=== PATIENT | female | born 1955 | race Two or more races ===

== ENCOUNTER 2024-08-01 08:43 | Inpatient (IN) | payer OTHER ==
[~2024-08-01] VITALS: Ht 160 cm; Wt 80.3 kg
--- NOTE | 2024-08-01 09:05 | ED.PDOC ---
History of Present Illness HPI Comments 69-year-old female presents with a chief complaint of flu-likes symptoms with N/V/D. Patient states that she is experiencing cough, headache, body aches, along with N/V/D. Patient is tachycardic upon arrival. Patient was sating at 93% on room air during triage. Chief Complaint: Nausea/Vomiting Time Seen by MD: 08:53 Reviewed Notes: Medications, Allergies Allergies: Coded Allergies: NO KNOWN ALLERGIES (Unverified , 08/01/24) Information Source: Patient Mode of Arrival: Ambulatory Severity: Moderate Timing: Days Duration: Since onset Prehospital treatment: None Past Medical History PAST MEDICAL HISTORY: Denies Surgical History: DEBONE SUPERVISOR History: Denies all DEBONE SUPERVISOR Hx Family History Family History: Reviewed,noncontributory to illness Social History Smoker: Non-Smoker Alcohol: Denies ETOH Use Drugs: Denies Drug Use Lives In: Home Constitutional: denies: chills, diaphoresis, fatigue, fever, malaise, sweats, weakness, others EENTM: denies: blurred vision, double vision, ear bleeding, ear discharge, ear drainage, ear pain, ear ringing, eye pain, eye redness, hearing loss, mouth pain, mouth swelling, nasal discharge, nose bleeding, nose congestion, nose pain, photophobia, tearing, throat pain, throat swelling, voice changes, others Respiratory: reports: cough Cardiovascular: denies: chest pain, dizzy spells, diaphoresis, Dyspnea on exertion, edema, irregular heart beat, left arm pain, lightheadedness, palpitations, PND, syncope, others Gastrointestinal: reports: diarrhea, nausea, vomiting; denies: abdomen distended, abdominal pain, blood streaked bowels, constipated, dysphagia, difficulty swallowing, hematemesis, melena, poor appetite, poor fluid intake, rectal bleeding, rectal pain, others Genitourinary: denies: abnormal vagina bleeding, burning, dyspareunia, dysuria, flank pain, frequency, hematuria, incontinence, pain, , vagina discharge, urgency, others Neurological: reports: headache; denies: dizziness, fainting, left sided numbness, left sided weakness, numbness, paresthesia, pre-existing deficit, right sided numbness, right sided weakness, seizure, speech problems, tingling, tremors, weakness, others Musculoskeletal: reports: muscle pain; denies: back pain, gout, joint pain, joint swelling, muscle stiffness, neck pain, others Integumetry: denies: bruises, change in color, change in hair/nails, dryness, laceration, lesions, lumps, rash, wounds, others Allergic/Immunocompromised: denies: Difficulty Healing, Frequent Infections, Hives, Itching, others Hematologic/Lymphatic: denies: anemia, blood clots, easy bleeding, easy bruising, swollen glands, others Endocrine: denies: excessive hunger, excessive sweating, excessive thirst, excessive urination, flushing, intolerance to cold, intolerance to heat, unexplained weight gain, unexplained weight loss, others Psychiatric: denies: anxiety, bipolar disorder, depression, hopeless, panic disorder, schizophrenia, sleepless, suicidal, others All Other Systems: Reviewed and Negative Physical Exam General Appearance: No Apparent Distress, Normal HEENT: Normal ENT Inspection, Pharynx Normal, TMs Normal Neck: Full Range of Motion, Non-Tender, Normal, Normal Inspection Respiratory: Chest Non-Tender, Lungs Clear, No Accessory Muscle Use, No Respiratory Distress, Normal Breath Sounds Cardiovascular: No Edema, No JVD, No Murmur, No Gallop, Normal Peripheral Pulses, Regular Rate/Rhythm Breast Exam: Deferred Gastrointestinal: No Organomegaly, Non Tender, No Pulsatile Mass, Normal Bowel Sounds, Soft Genitalia: Deferred Pelvic: Deferred Rectal: Deferred Extremities: No calf tenderness, Normal capillary refill, Normal inspection, Normal range of motion, Non-tender, No pedal edema Musculoskeletal : Apperance: Normal Neurologic: Alert, couture dressmaker II-XII nml as Tested, No Motor Deficits, Normal Affect, Normal Mood, No Sensory Deficits Cerebellar Function: Normal Reflexes: Normal Skin: Dry, Normal Color, Warm Lymphatic: No Adenopathy Was a procedure done? Was a procedure done?: No Differential Dx Considerations may include: sepsis due to influenza, uti, pneumonia, intraabdominal infection, skin infection, viral syndrome X-Ray, Labs, Meds, VS Vital Signs Date Time Temp Pulse Resp B/P (MAP) Pulse Ox O2 Delivery O2 Flow Rate FiO2 08/01/24 14:25 97.9 08/01/24 11:22 101.2 08/01/24 09:20 99.8 109 22 113/84 (94) 91 99.8 08/01/24 08:47 99.7 117 22 100/67 (78) 94 99.7 Lab Test 08/01/24 13:20 08/01/24 09:40 Range/Units Influenza Type A Antigen Negative Negative Influenza Type B Antigen Negative Negative White Blood Count 8.4 4.4-10.8 10^3/uL Red Blood Count 4.60 4.0-5.20 10^6/uL Hemoglobin 14.2 12.2-16.2 g/dL Hematocrit 40.4 36.0-46.0 % Mean Corpuscular Volume 87.8 80.0-100.0 fL Mean Corpuscular Hemoglobin 30.9 28.0-32.0 pg Mean Corpuscular Hemoglobin Concent 35.2 32.0-36.0 g/dL Red Cell Distribution Width 13.3 11.8-14.3 % Platelet Count 140 140-450 10^3/uL Mean Platelet Volume 9.3 6.9-10.8 fL Neutrophils (%) (Auto) 87.0 H 37.0-80.0 % Lymphocytes (%) (Auto) 5.3 L 10.0-50.0 % Monocytes (%) (Auto) 7.4 0.0-12.0 % Eosinophils (%) (Auto) 0.0 0.0-7.0 % Basophils (%) (Auto) 0.3 0.0-2.0 % Neutrophils # (Auto) 7.3 1.6-8.6 10 ^3/uL Lymphocytes # (Auto) 0.4 0.4-5.4 10 ^3/uL Monocytes # (Auto) 0.6 0-1.3 10 ^3/uL Eosinophils # (Auto) 0 0-0.8 10 ^3/uL Basophils # (Auto) 0 0-0.2 10 ^3/uL Nucleated Red Blood Cells 0.1 % Sodium Level 124 L 136-145 mmol/L Potassium Level 3.6 3.5-5.1 mmol/L Chloride Level 95 L 98-107 mmol/L Carbon Dioxide Level 19 L 20-31 mmol/L Anion Gap 10 5-15 Blood Urea Nitrogen 18 9-23 mg/dL Creatinine 1.22 H 0.550-1.02 mg/dL Glomerular Filtration Rate Calc 48 >90 mL/min BUN/Creatinine Ratio 14.8 10.0-20.0 Serum Glucose 111 H 74-106 mg/dL Lactic Acid Level 1.0 0.4-2.0 mmol/L Calcium Level 9.1 8.7-10.4 mg/dL Current Medications Medications (Trade) Dose Ordered Sig/Quintin Route Start Time Stop Time Status Last Admin Sodium Chloride 1,500 ml @ 1,500 mls/hr ONCE ONCE IV 08/01/24 09:15 08/01/24 10:14 DC 08/01/24 09:29 Cefepime HCl 50 ml @ 12.5 mls/hr Q12H IV 08/01/24 11:00 08/01/24 11:22 Acetaminophen (Tylenol Tablet) 650 mg ONCE ONCE PO 08/01/24 11:00 08/01/24 11:02 DC 08/01/24 11:22 Time of 1ST Reevaluation: 09:23 Reevaluation 1ST: Unchanged Patient Education/Counseling: Diagnosis, Treatment Family Education/Counseling: No Family Present Additional Information Previous visits: The following tests were ordered, and results were reviewed by me: Additional Information was gathered from interviewing the following independent historians: I reviewed and agreed with the following test results read by other providers: I discussed treatment and results with medical personnel and: Patient Comprehensive systems review obtained and negative except for what is stated in the HPI. Sepsis Sepsis Reasesment Focused Exam Sepsis focused exam: focus exam completed (pt is awake, aleert, normotensive, cap refill<2 secs), time: (1505) Departure 1 Departure Time of Disposition: 15:05 Impression: Primary Impression: Sepsis Qualified Codes: A41.9 - Sepsis, unspecified organism Disposition: ADMITTED INPATIENT Admit to: Tele Condition: Serious Discharged With: Self, Relative Critical Care Note Critical Care Time?: Yes (55 min-critical care time only) Critical care comment: Due to concerns for patients condition deteriorating, the care required my highest level of attention and readiness to intervene. I assessed the patient, reviewed the medical records, ordered the appropriate tests and treatments, then reassessed for results and responsiveness. I communicated with medical personnel and consultants and formulated a plan of care. Total critical care time excludes any procedures Stability Stability form required: No Heart Score Heart Score: Heart Score Response (Comments) Value History N/A 0 EKG N/A 0 Age N/A 0 Risk Factors N/A 0 Troponin N/A 0 Total 0 I personally scribed for LEELA ANDRADE MD ([email or web address]) on 08/01/24 at 09:05. Electronically submitted by Bryant Bowers ([email or web address]). LEELA ANDRADE MD Aug 01, 2024 09:05
[2024-08-01] MEDS: SODIUM CHLORIDE 0.9% 1,500 ML IV ONE (09:29)
--- NOTE | 2024-08-01 09:41 | DVH ---
INDICATION: cough TECHNIQUE: Frontal view of the chest. COMPARISON: None FINDINGS: . The heart and mediastinal contours are grossly unremarkable. There is no evidence of pleural disea se. The lungs are clear. The bony structures of the chest are intact without fracture. IMPRESSION: 1. No evidence of acute disease.
[2024-08-01 10:05] LABS: Basophils # (auto) 0 10 ^3/uL (0-0.2); Basophils % (auto) 0.3 % (0.0-2.0); Eosinophils # (auto) 0 10 ^3/uL (0-0.8); Hematocrit 40.4 % (36.0-46.0); Hemoglobin 14.2 g/dL (12.2-16.2); Lymphocytes # (auto) 0.4 10 ^3/uL (0.4-5.4); Lymphocytes % (auto) 5.3 % (10.0-50.0); Mean Corpuscular Hemoglobin 30.9 pg (28.0-32.0); Mean Corpuscular Hgb Conc. 35.2 g/dL (32.0-36.0); Mean Corpuscular Volume 87.8 fL (80.0-100.0); Monocytes # (auto) 0.6 10 ^3/uL (0-1.3); Monocytes % (auto) 7.4 % (0.0-12.0); Neutrophils # (auto) 7.3 10 ^3/uL (1.6-8.6); Nucleated Red Blood Cells % 0.1 %; Platelet Count (auto) 140 10^3/uL (140-450); Red Cell Distribution Width 13.3 % (11.8-14.3); White Blood Cell 8.4 10^3/uL (4.4-10.8)
[2024-08-01 10:15] LABS: Anion Gap 10 (5-15); Potassium 3.6 mmol/L (3.5-5.1)
[2024-08-01 10:16] LABS: Calcium 9.1 mg/dL (8.7-10.4)
[2024-08-01 10:21] LABS: BUN/Creatinine Ratio 14.8 (10.0-20.0); Blood Urea Nitrogen 18 mg/dL (9-23)
[2024-08-01 10:24] LABS: Carbon Dioxide 19 mmol/L (20-31); Chloride 95 mmol/L (98-107); Glucose 111 mg/dL (74-106); Sodium 124 mmol/L (136-145)
[2024-08-01] MEDS: ACETAMINOPHEN 325 MG TAB PO ONE (11:22)
[2024-08-01] MEDS: CEFEPIME 1GM/ 50ML 50 ML IV SCH ×2 (11:22→21:44)
[2024-08-01] MEDS ORDERED: CEFEPIME 1GM/ 50ML 50 ML IV SCH (14:00)
[2024-08-01 15:04] LABS: Rapid Influenza A Negative (Negative); Rapid Influenza B Negative (Negative)
[2024-08-01 15:59] LABS: Urine Bacteria FEW /hpf (None Seen); Urine Blood 1+ /uL (Negative); Urine Clarity Clear (Clear); Urine Color Light-Yellow (Yellow); Urine Protein, UAD TRACE (Negative); Urine Specific Gravity 1.009 (1.001-1.035); Urine Squamous Epithelial Cell FEW /hpf (<5); Urine Urobilinogen Normal (Negative); Urine WBC 2 /HPF (0-5); Urine pH 5.5 (5.0-9.0)
[2024-08-01] MEDS ORDERED: ONDANSETRON HCL 4 MG/2 ML VIAL IV PRN (16:45)
[2024-08-01] MEDS ORDERED: NITROGLYCERIN 0.4 MG SL TAB SL PRN (16:45)
[2024-08-01] MEDS ORDERED: MORPHINE SULFATE INJ 2 MG/ml SYRG IV PRN ×2 (16:45)
--- NOTE | 2024-08-01 16:54 | DVHHP2 ---
History of Present Illness Reason for Visit: Nausea vomiting and flu-like symptoms History of Present Illness 69-year-old female with no significant past medical history presented to the hospital nausea vomiting worsening for last few days. Patient was found to have flu-like symptoms as well. Patient does complain of cough with phlegm . Patient was found to have an early sepsis. Patient currently denies any chest pain palpitations denies any abdominal pain diarrhea. His any hematemesis hematochezia melena dysuria hematuria Past Medical History None. Past Surgical History: None Smoke: No ALCOHOL: none Review of Systems Review of Systems Twelve review of systems are negative except mentioned above. Allergies: Coded Allergies: NO KNOWN ALLERGIES (Unverified , 08/01/24) Medications Current Medications Medications Dose Ordered Sig/Quintin Route Start Time Stop Time Status Last Admin Dose Admin Cefepime HCl 50 ml @ 12.5 mls/hr Q12H IV 08/01/24 11:00 08/01/24 11:22 12.5 MLS/HR Sodium Chloride 1,000 ml @ 120 mls/hr Q8H20M IV 08/01/24 16:45 UNV Acetaminophen/ Hydrocodone Bitart 1 tab Q4HP PRN PO 08/01/24 16:45 UNV Ondansetron HCl 4 mg Q4HP PRN IV 08/01/24 16:45 UNV Enoxaparin Sodium 30 mg DAILY SC 08/02/24 10:00 UNV Acetaminophen 650 mg Q6HP PRN PO 08/01/24 16:45 UNV Morphine Sulfate 2 mg Q4HPRN PRN IV 08/01/24 16:45 UNV Nitroglycerin 0.4 mg Q5MINP PRN SL 08/01/24 16:45 UNV Morphine Sulfate 2 mg Q30M PRN IV 08/01/24 16:45 UNV Cefepime HCl 50 ml @ 12.5 mls/hr Q8HR IV 08/01/24 22:00 UNV Exam Vital Signs Vital Signs Date Time Temp Pulse Resp B/P (MAP) Pulse Ox O2 Delivery O2 Flow Rate FiO2 08/01/24 14:25 97.9 08/01/24 14:00 67 22 102/56 (71) 98 Exam HEENT pupils reactive Neck is supple CVS S1-S2 regular rate and rhythm Respiratory: Clear GI positive bowel sound Extremity no edema 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 Labs/Xrays Labs Test 08/01/24 15:36 08/01/24 13:20 08/01/24 09:40 Range/Units Urine Color Light-yellow Yellow Urine Clarity Clear Clear Urine pH 5.5 5.0-9.0 Urine Specific [place] 1.009 1.001-1.035 Urine Protein Trace H Negative Urine Ketones Negative Negative Urine Blood 1+ H Negative /uL Urine Nitrite Negative Negative Urine Bilirubin Negative Negative Urine Urobilinogen Normal Negative mg/dL Urine Leukocyte Esterase Negative Negative /uL Urine RBC <1 0 - 4 /hpf Urine Microscopic WBC 2 0-5 /HPF Urine Squamous Epithelial Cells Few <5 /hpf Urine Bacteria Few H None Seen /hpf Urine Glucose Normal Normal mg/dL Influenza Type A Antigen Negative Negative Influenza Type B Antigen Negative Negative White Blood Count 8.4 4.4-10.8 10^3/uL Red Blood Count 4.60 4.0-5.20 10^6/uL Hemoglobin 14.2 12.2-16.2 g/dL Hematocrit 40.4 36.0-46.0 % Mean Corpuscular Volume 87.8 80.0-100.0 fL Mean Corpuscular Hemoglobin 30.9 28.0-32.0 pg Mean Corpuscular Hemoglobin Concent 35.2 32.0-36.0 g/dL Red Cell Distribution Width 13.3 11.8-14.3 % Platelet Count 140 140-450 10^3/uL Mean Platelet Volume 9.3 6.9-10.8 fL Neutrophils (%) (Auto) 87.0 H 37.0-80.0 % Lymphocytes (%) (Auto) 5.3 L 10.0-50.0 % Monocytes (%) (Auto) 7.4 0.0-12.0 % Eosinophils (%) (Auto) 0.0 0.0-7.0 % Basophils (%) (Auto) 0.3 0.0-2.0 % Neutrophils # (Auto) 7.3 1.6-8.6 10 ^3/uL Lymphocytes # (Auto) 0.4 0.4-5.4 10 ^3/uL Monocytes # (Auto) 0.6 0-1.3 10 ^3/uL Eosinophils # (Auto) 0 0-0.8 10 ^3/uL Basophils # (Auto) 0 0-0.2 10 ^3/uL Nucleated Red Blood Cells 0.1 % Sodium Level 124 L 136-145 mmol/L Potassium Level 3.6 3.5-5.1 mmol/L Chloride Level 95 L 98-107 mmol/L Carbon Dioxide Level 19 L 20-31 mmol/L Anion Gap 10 5-15 Blood Urea Nitrogen 18 9-23 mg/dL Creatinine 1.22 H 0.550-1.02 mg/dL Glomerular Filtration Rate Calc 48 >90 mL/min BUN/Creatinine Ratio 14.8 10.0-20.0 Serum Glucose 111 H 74-106 mg/dL Lactic Acid Level 1.0 0.4-2.0 mmol/L Calcium Level 9.1 8.7-10.4 mg/dL Assessment/Plan Assessment/Plan 69-year-old female with no significant past medical history initially admitted to the hospital with nausea vomiting, flu-like symptoms, cough and phlegm found to have 1. Sepsis unspecified follow up blood cultures 2. Nausea vomiting unspecified next 3. Acute kidney injury suspect secondary to vasomotor nephropathy 4. Metabolic acidosis secondary to dehydration next 5. Hyponatremia likely hypovolemic -admit to telemetry IV hydration empiric IV antibiotics follow up blood cultures- -BMP every 12 hour, nephrology consultation Plan discussed with: Patient, Son My Orders Orders - TONY NAVARRETE MD Procedure Category Date Status Time Admit ADMIT 08/01/24 Transmitted 16:44 Code Status CODE 08/01/24 Transmitted 16:44 Full Liq Diet DIET 08/01/24 Transmitted Dinner Sodium Chloride 0.9% PHA 08/01/24 Logged 16:45 Hydrocodone-Acet PHA 08/01/24 Logged 5/325mg Tab ([place] 16:45 Ondansetron Hcl PHA 08/01/24 Logged (Zofran) 16:45 Fall Risk Precautions [facility]YLAH 08/01/[address] 16:44 Complete Blood Count LAB 08/02/24 Verified 04:00 Comprehensive LAB 08/02/24 Verified Metabolic Panel 04:00 Pt Request For Service PT 08/01/24 Logged 16:44 Condition: Fair [facility]LA[facility] 08/01/24 In Process 16:44 Enoxaparin Sodium PHA 08/02/24 Logged (Lovenox) 10:00 Acetaminophen Tablet PHA 08/01/24 Logged (Tylenol Tablet) 16:45 Morphine Sulfate PHA 08/01/24 Logged Injection 16:45 Nitroglycerin PHA 08/01/24 Logged Sublingual (Ntrostat 16:45 Morphine Sulfate PHA 08/01/24 Logged Injection 16:45 Stat Ekg For Chest [facility] 08/01/24 In Process Pain 16:44 Notify Md Of Changes [facility] 08/01/24 In Process From Base 16:44 Continuous Improvement Engineer For [facility] 08/01/24 In Process 24 Hours 16:44 Emergency Dysrhythmia [facility] 08/01/24 In Process Protocol 16:44 Rhythm Strips Once [facility] 08/01/24 In Process Every Shift 16:44 Oxygen By Nasal RT 08/01/24 Transmitted Cannula 16:44 *Dr[facility] CONS 08/01/24 Transmitted -[place] 16:44 Cefepime 1gm/ 50ml PHA 08/01/24 Logged (Maxipime 1gm/50ml) 22:00 Date of Service: Aug 01, 2024 Billing Provider: TONY NAVARRETE MD Common Visit Codes: NOT BILLABLE TONY NAVARRETE MD Aug 01, 2024 16:54
[2024-08-01] MEDS: SODIUM CHLORIDE 0.9% 1,000 ML IV SCH (17:20)
[2024-08-01 20:00] VITALS: PULSE 90; RESP 25; O2SAT 92
[2024-08-01 21:50] VITALS: BP 124/58; PULSE 85; RESP 17; TEMP 97.8; O2SAT 98
[2024-08-01] MEDS: HYDROcodone-ACET 5/325MG TAB PO PRN (21:52)
[2024-08-01 22:00] VITALS: PULSE 85; RESP 17; O2SAT 98
[2024-08-01 22:24] LABS: Chloride 99 mmol/L (98-107); Potassium 3.7 mmol/L (3.5-5.1)
[2024-08-01 22:25] LABS: Anion Gap 7 (5-15); Carbon Dioxide 21 mmol/L (20-31)
[2024-08-01 22:26] LABS: Calcium 8.9 mg/dL (8.7-10.4)
[2024-08-01 22:30] LABS: Blood Urea Nitrogen 17 mg/dL (9-23); Glucose 88 mg/dL (74-106)
[2024-08-01 22:33] LABS: Sodium 127 mmol/L (136-145)
[2024-08-02] VITALS (8 sets, daily range): BP systolic 98–124; BP diastolic 60–78; PULSE 70–95; RESP 15–18; TEMP 97.3–99.8; O2SAT 91–98
[2024-08-02 06:29] LABS: Basophils # (auto) 0.1 10 ^3/uL (0-0.2); Basophils % (auto) 0.7 % (0.0-2.0); Eosinophils # (auto) 0 10 ^3/uL (0-0.8); Eosinophils % (auto) 0.1 % (0.0-7.0); Hematocrit 40.5 % (36.0-46.0); Hemoglobin 13.9 g/dL (12.2-16.2); Lymphocytes # (auto) 0.4 10 ^3/uL (0.4-5.4); Lymphocytes % (auto) 6.1 % (10.0-50.0); Mean Corpuscular Hemoglobin 30.6 pg (28.0-32.0); Mean Corpuscular Hgb Conc. 34.3 g/dL (32.0-36.0); Mean Corpuscular Volume 89.2 fL (80.0-100.0); Monocytes # (auto) 0.4 10 ^3/uL (0-1.3); Monocytes % (auto) 6.2 % (0.0-12.0); Neutrophils % (auto) 86.9 % (37.0-80.0); Platelet Count (auto) 139 10^3/uL (140-450); Red Blood Cells 4.55 10^6/uL (4.0-5.20); Red Cell Distribution Width 13.9 % (11.8-14.3)
[2024-08-02 07:28] LABS: Alkaline Phosphatase 116 U/L (46-116); Anion Gap 8 (5-15); BUN/Creatinine Ratio 16.7 (10.0-20.0); Blood Urea Nitrogen 16 mg/dL (9-23); Calcium 9.2 mg/dL (8.7-10.4); Carbon Dioxide 21 mmol/L (20-31); Chloride 100 mmol/L (98-107); Glucose 77 mg/dL (74-106); Potassium 4.1 mmol/L (3.5-5.1); Total Protein 7.2 g/dL (5.7-8.2)
[2024-08-02 07:29] LABS: Albumin 3.9 g/dL (3.2-4.8); Bilirubin, Total 0.4 mg/dL (0.2-1.0)
[2024-08-02 07:36] LABS: Alanine Aminotransferase 101 U/L (7-40); Aspartate Aminotransferase 101 U/L (13-40); Sodium 129 mmol/L (136-145)
[2024-08-02] MEDS: ACETAMINOPHEN 325 MG TAB PO PRN (09:16)
[2024-08-02] MEDS: ENOXAPARIN SOD 40 MG/0.4 ML SYRINGE SC SCH (09:17)
[2024-08-02 13:34] LABS: Magnesium 2.3 mg/dL (1.6-2.6)
[2024-08-02 13:36] LABS: Phosphorus 3.1 mg/dL (2.4-5.1)
--- NOTE | 2024-08-02 14:12 | DVH ---
INDICATION: ckd TECHNIQUE: Multiple real-time sonographic images of the kidneys and bladder were obtained. COMPARISON: None FINDINGS: The right kidney measures 11.4 cm in length, which is normal in size. There is normal echog enicity of the right kidney. No hydronephrosis. The left kidney measures 10.4 cm in length, which is normal in size. There is normal echogenicity of the left kidney. No hydronephrosis. No large intraluminal masses are seen in the bladder. IMPRESSION: 1. Normal sonographic appearance of the kidneys. No hydronephrosis.
[2024-08-02 14:38] LABS: Chloride 102 mmol/L (98-107); Potassium 3.6 mmol/L (3.5-5.1)
[2024-08-02 14:39] LABS: Anion Gap 8 (5-15); Carbon Dioxide 21 mmol/L (20-31); Sodium 131 mmol/L (136-145)
[2024-08-02 14:44] LABS: BUN/Creatinine Ratio 20.5 (10.0-20.0); Blood Urea Nitrogen 17 mg/dL (9-23); Glucose 111 mg/dL (74-106)
--- NOTE | 2024-08-02 14:54 | DVHPN2 ---
Subjective Patient has stated that she has headache when she coughs. Also feeling weak. We will order COVID-[address] head noncontrast. Patient's family was updated regarding current plan of care. 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 Medications Current Medications Medications Dose Ordered Sig/Quintin Route Start Time Stop Time Status Last Admin Dose Admin Sodium Chloride 1,000 ml @ 120 mls/hr Q8H20M IV 08/01/24 16:45 08/02/24 09:18 120 MLS/HR Acetaminophen/ Hydrocodone Bitart 1 tab Q4HP PRN PO 08/01/24 16:45 08/01/24 21:52 1 TAB Ondansetron HCl 4 mg Q4HP PRN IV 08/01/24 16:45 Enoxaparin Sodium 40 mg DAILY SC 08/02/24 10:00 08/02/24 09:17 40 MG Acetaminophen 650 mg Q6HP PRN PO 08/01/24 16:45 08/02/24 09:16 650 MG Morphine Sulfate 2 mg Q4HPRN PRN IV 08/01/24 16:45 Nitroglycerin 0.4 mg Q5MINP PRN SL 08/01/24 16:45 Morphine Sulfate 2 mg Q30M PRN IV 08/01/24 16:45 Cefepime HCl 50 ml @ 12.5 mls/hr Q8HR IV 08/01/24 22:00 08/02/24 05:39 12.5 MLS/HR Laboratory Results Laboratory Tests 08/02/24 04:48 08/02/24 14:15 Chemistry Test 08/01/24 21:58 08/02/24 04:48 08/02/24 14:15 Calcium Level 8.9 mg/dL (8.7-10.4) 9.2 mg/dL (8.7-10.4) Pending Albumin 3.9 g/dL (3.2-4.8) Magnesium Level 2.3 mg/dL (1.6-2.6) Phosphorus Level 3.1 mg/dL (2.4-5.1) Total Protein 7.2 g/dL (5.7-8.2) Lipid panel Test 08/02/24 04:48 Cholesterol Level 123 mg/dL (< 200) HDL Cholesterol 14 mg/dL (40-59) L Triglycerides Level 180 mg/dL (< 150) H LFT Test 08/02/24 04:48 Alanine Aminotransferase (ALT) 101 U/L (7-40) H Alkaline Phosphatase 116 U/L (46-116) Aspartate Amino Transferase (AST) 101 U/L (13-40) H Total Bilirubin 0.4 mg/dL (0.2-1.0) HgA1c, TSH Test 08/02/24 04:48 Hemoglobin A1c 5.5 % A1C (<5.7) Thyroid Stimulating Hormone (TSH) 0.84 uIU/mL (0.55-4.78) Urinalysis Test 08/01/24 15:36 Urine Color Light-yellow (Yellow) Urine Clarity Clear (Clear) Urine pH 5.5 (5.0-9.0) Urine Specific [place] 1.009 (1.001-1.035) Urine Protein Trace (Negative) H Urine Ketones Negative (Negative) Urine Blood 1+ /uL (Negative) H Urine Nitrite Negative (Negative) Urine Bilirubin Negative (Negative) Urine Urobilinogen Normal mg/dL (Negative) Urine Leukocyte Esterase Negative /uL (Negative) Urine RBC <1 /hpf (0 - 4) Urine Microscopic WBC 2 /HPF (0-5) Urine Squamous Epithelial Cells Few /hpf (<5) Urine Bacteria Few /hpf (None Seen) H Urine Glucose Normal mg/dL (Normal) Microbiology Microbiology Date/Time Source Procedure Growth Status 08/01/24 09:40 Blood Blood Culture - Preliminary NO GROWTH AFTER 24 HOURS OF INCUBATION. Resulted Assessment/Plan Assessment/Plan 69-year-old female with no significant past medical history initially admitted to the hospital with nausea vomiting, flu-like symptoms, cough and phlegm found to have 1. Sepsis unspecified follow up blood cultures negative 2. Nausea vomiting unspecified , resolved 3. Acute kidney injury suspect secondary to vasomotor nephropathy, improving 4. Metabolic acidosis secondary to dehydration , improving 5. Hyponatremia likely hypovolemic, improving 6. Headache -CT head noncontrast, COVID-19 IV antibiotics follow up blood cultures- -BMP every 12 hour, nephrology consultation Plan discussed with: Patient, Son My Orders Orders - TONY NAVARRETE MD Procedure Category Date Status Time Admit ADMIT 08/01/24 Transmitted 16:44 Code Status CODE 08/01/24 Transmitted 16:44 Full Liq Diet DIET 08/01/24 Transmitted Dinner Sodium Chloride 0.9% PHA 08/01/24 In Process 16:45 Hydrocodone-Acet PHA 08/01/24 In Process 5/325mg Tab ([place] 16:45 Ondansetron Hcl PHA 08/01/24 In Process (Zofran) 16:45 Fall Risk Precautions [facility] 08/01/[address] 16:44 Pt Request For Service PT 08/01/24 Logged 16:44 Condition: Fair [facility]LA[facility] 08/01/24 In Process 16:44 Acetaminophen Tablet PHA 08/01/24 In Process (Tylenol Tablet) 16:45 Morphine Sulfate PHA 08/01/24 In Process Injection 16:45 Nitroglycerin PHA 08/01/24 In Process Sublingual (Ntrostat 16:45 Morphine Sulfate PHA 08/01/24 In Process Injection 16:45 Stat Ekg For Chest [facility] 08/01/24 In Process Pain 16:44 Notify Md Of Changes [facility] 08/01/24 In Process From Base 16:44 Yard Hostler For KAYLA[facility] 08/01/24 In Process 24 Hours 16:44 Emergency Dysrhythmia [facility] 08/01/24 In Process Protocol 16:44 Rhythm Strips Once [facility] 08/01/24 In Process Every Shift 16:44 Oxygen By Nasal RT 08/01/24 Transmitted Cannula 16:44 *Dr[facility] CONS 08/01/24 Transmitted -[place] 16:44 Cefepime 1gm/ 50ml PHA 08/01/24 In Process (Maxipime 1gm/50ml) 22:00 Basic Metabolic Panel LAB 08/02/24 In Process 14:00 Basic Metabolic Panel LAB 08/02/24 Logged 22:00 Enoxaparin Sodium PHA 08/02/24 In Process (Lovenox) 10:00 * Dietary Consult CONS 08/01/24 Transmitted 22:[address] 08/02/24 Logged 14:28 Covid19 Antigen [place] LAB 08/02/24 Logged Date of Service: Aug 02, 2024 Billing Provider: TONY NAVARRETE MD Common Visit Codes: NOT BILLABLE TONY NAVARRETE MD Aug 02, 2024 14:54
[2024-08-02 15:05] LABS: Calcium 8.8 mg/dL (8.7-10.4)
--- NOTE | 2024-08-02 15:18 | DVH ---
CLINICAL INFORMATION: 69 years old, Female; headache. TECHNIQUE: Axial imaging was obtained through the brain without contrast. Coronal and sagittal reform atted images were obtained, reviewed, and stored. Images were reviewed in brain and bone windows. Al l CT scans at this medical facility are performed using dose modulation techniques as appropriate to a performed exam including the following: Automated exposure control was utilized; adjustment of the MA and/or KV according to patient size; and use of iterative reconstruction technique. CTDIvol = 51.3 4 mGy DLP = 909.29 mGy-cm COMPARISON: None FINDINGS: There is no acute intracranial hemorrhage. No mass effect or midline shift. The ventricles and sulci are within normal limits in size for age. Basal cisterns are patent. The calvarium is unre markable. Mild mucosal thickening of the paranasal sinuses with mild partial opacification of the inf erior aspect of the left frontal sinus. IMPRESSION: No CT evidence of acute intracranial abnormality.
[2024-08-02 16:17] LABS: COVID19 ANTIGEN SOFIA FIA NEGATIVE (NEGATIVE)
--- NOTE | 2024-08-02 16:40 | DVHCONRES ---
Date Seen: Aug 02, 2024 Resident Creating Document: KALPESH GOLDMAN RESIDENT Referring Physician Reason for Consultation romi History of Present Illness 69-year-old female with no significant past medical history who presented to the emergency department with a chief complaint of nausea and vomiting and dry cough. She denies any other acute complaint. Nephrology was consulted based on acute kidney injury with associated hyponatremia. Patient was found to have flu-like symptoms on admission and meet criteria for sepsis for which the patient was started on antibiotics. Patient was examined at bedside and after a discussion with the primary care team patient was discharged home today. Family History: Patient reports no known family medical history. Allergies: Coded Allergies: NO KNOWN ALLERGIES (Unverified , 08/01/24) Home Meds No Active Prescriptions or Reported Meds Current Medications Current Medications Medications (Trade) Dose Ordered Sig/Quintin Route PRN Reason Start Time Stop Time Status Last Admin Sodium Chloride 1,000 ml @ 120 mls/hr Q8H20M IV 08/01/24 16:45 08/02/24 09:18 Acetaminophen/ Hydrocodone Bitart ([place]umpass 5/325MG Tab) 1 tab Q4HP PRN PO MODERATE PAIN (4-6 PAIN SCALE) 08/01/24 16:45 08/01/24 21:52 Ondansetron HCl (Zofran) 4 mg Q4HP PRN IV NAUSEA / VOMITING 08/01/24 16:45 Enoxaparin Sodium (Lovenox) 40 mg DAILY SC 08/02/24 10:00 08/02/24 09:17 Acetaminophen (Tylenol Tablet) 650 mg Q6HP PRN PO PAIN SCALE 1-3 OR TEMP>100.4 08/01/24 16:45 08/02/24 09:16 Morphine Sulfate 2 mg Q4HPRN PRN IV SEVERE PAIN (7-10 PAIN SCALE) 08/01/24 16:45 Nitroglycerin (Ntrostat Sublingual) 0.4 mg Q5MINP PRN SL FOR CHEST PAIN 08/01/24 16:45 Morphine Sulfate 2 mg Q30M PRN IV FOR CHEST PAIN 08/01/24 16:45 Cefepime HCl 50 ml @ 12.5 mls/hr Q8HR IV 08/01/24 22:00 08/02/24 15:07 Review of Systems Constitutional: No: Fever, Chills, Sweats, Weakness, Malaise, Other Eyes: No: Pain, Vision change, Conjunctivae inflammation, Eyelid inflammation, Other, Redness ENT: No: Ear pain, Ear discharge, Nose pain, Nose discharge, Nose congestion, Mouth pain, Mouth swelling, Throat pain, Throat swelling, Other Respiratory: Cough present, no Wheezing, Hemoptysis, Pleuritic Pain, Sputum, Wheezing, Other Cardiovascular: No: Chest Pain, Palpitations, Orthopnea, Paroxysmal Noc. Dyspnea, Edema, Lt Headedness, Other Gastrointestinal: No: Nausea, Vomiting, Abdominal Pain, Diarrhea, Constipation, Melena, Hematochezia, Other Musculoskeletal: No: other, neck pain, shoulder pain, arm pain, back pain, hand pain, leg pain, foot pain Neurological:; No: Weakness, Numbness, Incoordination, Change in speech, Confusion, Seizures Vital Signs Vital Signs Date Time Temp Pulse Resp B/P (MAP) Pulse Ox O2 Delivery O2 Flow Rate FiO2 08/02/24 12:51 98.1 70 18 104/63 (77) 95 98.1 08/02/24 08:00 Room Air* 0 21 Physical Exam Examination General Appearance: Alert, Oriented X3, Cooperative, No acute distress HEENT: EOMI Respiratory: Clear to auscultation, Normal air movement Cardiovascular: Regular rate, Normal S1, Normal S2 Abdominal: Normal bowel sounds Extremities: No cyanosis, No edema, Normal pulses, No tenderness/swelling Skin: No rashes, No breakdown Neuro: Normal gait, Normal speech, Strength at 5/5 X4 ext, Normal tone, Sensation intact, Cranial nerves 3-12 NL, Reflexes 2+ Psych/Mental Status: Mental status NL, Mood NL Labs/Diagnostic Data Labs Test 08/02/24 15:00 08/02/24 14:15 08/02/24 04:48 08/01/24 15:36 Range/Units SARS-CoV-2 Antigen (Rapid) Negative NEGATIVE Sodium Level 131 L 136-145 mmol/L Potassium Level 3.6 3.5-5.1 mmol/L Chloride Level 102 98-107 mmol/L Carbon Dioxide Level 21 20-31 mmol/L Anion Gap 8 5-15 Blood Urea Nitrogen 17 9-23 mg/dL Creatinine 0.83 0.550-1.02 mg/dL Glomerular Filtration Rate Calc 76 >90 mL/min BUN/Creatinine Ratio 20.5 H 10.0-20.0 Serum Glucose 111 H 74-106 mg/dL Calcium Level 8.8 8.7-10.4 mg/dL White Blood Count 7.0 4.4-10.8 10^3/uL Red Blood Count 4.55 4.0-5.20 10^6/uL Hemoglobin 13.9 12.2-16.2 g/dL Hematocrit 40.5 36.0-46.0 % Mean Corpuscular Volume 89.2 80.0-100.0 fL Mean Corpuscular Hemoglobin 30.6 28.0-32.0 pg Mean Corpuscular Hemoglobin Concent 34.3 32.0-36.0 g/dL Red Cell Distribution Width 13.9 11.8-14.3 % Platelet Count 139 L 140-450 10^3/uL Mean Platelet Volume 9.7 6.9-10.8 fL Neutrophils (%) (Auto) 86.9 H 37.0-80.0 % Lymphocytes (%) (Auto) 6.1 L 10.0-50.0 % Monocytes (%) (Auto) 6.2 0.0-12.0 % Eosinophils (%) (Auto) 0.1 0.0-7.0 % Basophils (%) (Auto) 0.7 0.0-2.0 % Neutrophils # (Auto) 6.0 1.6-8.6 10 ^3/uL Lymphocytes # (Auto) 0.4 0.4-5.4 10 ^3/uL Monocytes # (Auto) 0.4 0-1.3 10 ^3/uL Eosinophils # (Auto) 0 0-0.8 10 ^3/uL Basophils # (Auto) 0.1 0-0.2 10 ^3/uL Nucleated Red Blood Cells 0.0 % Hemoglobin A1c 5.5 <5.7 % A1C Phosphorus Level 3.1 2.4-5.1 mg/dL Magnesium Level 2.3 1.6-2.6 mg/dL Total Bilirubin 0.4 0.2-1.0 mg/dL Aspartate Amino Transferase (AST) 101 H 13-40 U/L Alanine Aminotransferase (ALT) 101 H 7-40 U/L Alkaline Phosphatase 116 46-116 U/L Total Protein 7.2 5.7-8.2 g/dL Albumin 3.9 3.2-4.8 g/dL Triglycerides Level 180 H < 150 mg/dL Cholesterol Level 123 < 200 mg/dL LDL Cholesterol 52 < 100 mg/dL HDL Cholesterol 14 L 40-59 mg/dL Vitamin D 25-Hydroxy 15.9 L 30.0-100 ng/mL Thyroid Stimulating Hormone (TSH) 0.84 0.55-4.78 uIU/mL Parathyroid Hormone (Intact) 66.5 18.4-80.1 pg/mL Urine Color Light-yellow Yellow Urine Clarity Clear Clear Urine pH 5.5 5.0-9.0 Urine Specific [place] 1.009 1.001-1.035 Urine Protein Trace H Negative Urine Ketones Negative Negative Urine Blood 1+ H Negative /uL Urine Nitrite Negative Negative Urine Bilirubin Negative Negative Urine Urobilinogen Normal Negative mg/dL Urine Leukocyte Esterase Negative Negative /uL Urine RBC <1 0 - 4 /hpf Urine Microscopic WBC 2 0-5 /HPF Urine Squamous Epithelial Cells Few <5 /hpf Urine Bacteria Few H None Seen /hpf Urine Glucose Normal Normal mg/dL Test 08/01/24 13:20 08/01/24 09:40 Range/Units Influenza Type A Antigen Negative Negative Influenza Type B Antigen Negative Negative Lactic Acid Level 1.0 0.4-2.0 mmol/L Microbiology Date/Time Source Procedure Growth Status 08/01/24 09:40 Blood Blood Culture - Preliminary NO GROWTH AFTER 24 HOURS OF INCUBATION. Resulted Assessment Acute kidney injury likely hemodynamic mediated Sepsis unspecified, resolved Metabolic acidosis secondary due to dehydration, resolves Hyponatremia, currently 131 resolving Plan: better renal function Follow up with the Nephrology in the outpatient, kidney function went back to normal, kidney ultrasound was unremarkable and head CT was also unremarkable, we are signing off at this time . Addendum Patient seen and examined, plan discussed with resident. Agree with above, we will follow closely Plan discussed with: Patient SARAH MeghnaKALPESH Aug 02, 2024 16:40 GILMAR GUPTA MD Aug 02, 2024 19:30
[2024-08-02] MEDS: FAMOTIDINE 20 MG TAB PO ONE (23:07)
[2024-08-02] MEDS: MELATONIN 5 MG TAB PO ONE (23:07)
[2024-08-03 01:00] VITALS: BP 113/64; PULSE 71; RESP 16; TEMP 98.4; O2SAT 94
[2024-08-03 05:00] VITALS: BP 127/80; PULSE 85; RESP 16; TEMP 98.7; O2SAT 96
[2024-08-03 07:43] LABS: Anion Gap 7 (5-15); Calcium 9.3 mg/dL (8.7-10.4); Carbon Dioxide 21 mmol/L (20-31); Chloride 103 mmol/L (98-107); Potassium 3.8 mmol/L (3.5-5.1)
[2024-08-03 07:49] LABS: BUN/Creatinine Ratio 15.6 (10.0-20.0); Blood Urea Nitrogen 12 mg/dL (9-23); Glucose 80 mg/dL (74-106); Magnesium 2.2 mg/dL (1.6-2.6)
[2024-08-03 07:52] LABS: Sodium 131 mmol/L (136-145)
[2024-08-03 08:00] VITALS: PULSE 70; PULSE 71; RESP 18; O2SAT 95
[2024-08-03 08:30] VITALS: BP 108/62; PULSE 71; RESP 18; TEMP 98.2; O2SAT 95
[2024-08-03] MEDS: FAMOTIDINE 20 MG TAB PO SCH (10:35)
[2024-08-03] MEDS ORDERED: CEFD300C2 PO (11:52)
--- NOTE | 2024-08-03 11:54 | DVHDS2 ---
Discharge Summary Date of Admission Aug 01, 2024 at 16:44 Date of Discharge: Aug 03, 2024 Labs/Diagnostic Data: Laboratory Results Test 08/03/24 04:14 08/02/24 15:00 08/02/24 04:48 08/01/24 15:36 Sodium Level 131 mmol/L (136-145) Potassium Level 3.8 mmol/L (3.5-5.1) Chloride Level 103 mmol/L (98-107) Carbon Dioxide Level 21 mmol/L (20-31) Anion Gap 7 (5-15) Blood Urea Nitrogen 12 mg/dL (9-23) Creatinine 0.77 mg/dL (0.550-1.02) Glomerular Filtration Rate Calc 83 mL/min (>90) BUN/Creatinine Ratio 15.6 (10.0-20.0) Serum Glucose 80 mg/dL (74-106) Calcium Level 9.3 mg/dL (8.7-10.4) Magnesium Level 2.2 mg/dL (1.6-2.6) SARS-CoV-2 Antigen (Rapid) Negative (NEGATIVE) White Blood Count 7.0 10^3/uL (4.4-10.8) Red Blood Count 4.55 10^6/uL (4.0-5.20) Hemoglobin 13.9 g/dL (12.2-16.2) Hematocrit 40.5 % (36.0-46.0) Mean Corpuscular Volume 89.2 fL (80.0-100.0) Mean Corpuscular Hemoglobin 30.6 pg (28.0-32.0) Mean Corpuscular Hemoglobin Concent 34.3 g/dL (32.0-36.0) Red Cell Distribution Width 13.9 % (11.8-14.3) Platelet Count 139 10^3/uL (140-450) Mean Platelet Volume 9.7 fL (6.9-10.8) Neutrophils (%) (Auto) 86.9 % (37.0-80.0) Lymphocytes (%) (Auto) 6.1 % (10.0-50.0) Monocytes (%) (Auto) 6.2 % (0.0-12.0) Eosinophils (%) (Auto) 0.1 % (0.0-7.0) Basophils (%) (Auto) 0.7 % (0.0-2.0) Neutrophils # (Auto) 6.0 10 ^3/uL (1.6-8.6) Lymphocytes # (Auto) 0.4 10 ^3/uL (0.4-5.4) Monocytes # (Auto) 0.4 10 ^3/uL (0-1.3) Eosinophils # (Auto) 0 10 ^3/uL (0-0.8) Basophils # (Auto) 0.1 10 ^3/uL (0-0.2) Nucleated Red Blood Cells 0.0 % Hemoglobin A1c 5.5 % A1C (<5.7) Phosphorus Level 3.1 mg/dL (2.4-5.1) Total Bilirubin 0.4 mg/dL (0.2-1.0) Aspartate Amino Transferase (AST) 101 U/L (13-40) Alanine Aminotransferase (ALT) 101 U/L (7-40) Alkaline Phosphatase 116 U/L (46-116) Total Protein 7.2 g/dL (5.7-8.2) Albumin 3.9 g/dL (3.2-4.8) Triglycerides Level 180 mg/dL (< 150) Cholesterol Level 123 mg/dL (< 200) LDL Cholesterol 52 mg/dL (< 100) HDL Cholesterol 14 mg/dL (40-59) Vitamin D 25-Hydroxy 15.9 ng/mL (30.0-100) Thyroid Stimulating Hormone (TSH) 0.84 uIU/mL (0.55-4.78) Parathyroid Hormone (Intact) 66.5 pg/mL (18.4-80.1) Urine Color Light-yellow (Yellow) Urine Clarity Clear (Clear) Urine pH 5.5 (5.0-9.0) Urine Specific [place] 1.009 (1.001-1.035) Urine Protein Trace (Negative) Urine Ketones Negative (Negative) Urine Blood 1+ /uL (Negative) Urine Nitrite Negative (Negative) Urine Bilirubin Negative (Negative) Urine Urobilinogen Normal mg/dL (Negative) Urine Leukocyte Esterase Negative /uL (Negative) Urine RBC <1 /hpf (0 - 4) Urine Microscopic WBC 2 /HPF (0-5) Urine Squamous Epithelial Cells Few /hpf (<5) Urine Bacteria Few /hpf (None Seen) Urine Glucose Normal mg/dL (Normal) Test 08/01/24 13:20 08/01/24 09:40 Influenza Type A Antigen Negative (Negative) Influenza Type B Antigen Negative (Negative) Lactic Acid Level 1.0 mmol/L (0.4-2.0) Other Laboratory Tests 08/03/24 04:14 08/02/24 04:48 Brief Hx & Hospital Course: 69-year-old female with no significant past medical history initially admitted to the hospital with nausea vomiting, flu-like symptoms, cough and phlegm found to have suspected acute gastroenteritis. Sepsis has been ruled out with negative blood cultures. Patient also complaining of cough and phlegm suspected acute bronchitis. Patient was given IV antibiotics patient also complained of a headache but no focal deficits CT head negative for any acute pathology. Patient hyponatremia suspect secondary to hypovolemia resolved. Patient being discharged in a stable condition on p.o. antibiotics and cough medication as per patient's request. Condition at Discharge: Stable Final Diagnosis/Problems List 69-year-old female with no significant past medical history initially admitted to the hospital with nausea vomiting, flu-like symptoms, cough and phlegm found to have 1. Sepsis unspecified follow up blood cultures negative 2. Nausea vomiting unspecified , resolved 3. Acute kidney injury suspect secondary to vasomotor nephropathy, improving 4. Metabolic acidosis secondary to dehydration , improving 5. Hyponatremia likely hypovolemic, improving 6. Headache Discharge Disposition: Home with [facility] Services [facility] Discharge Will this Physician continue t: No Discharge Instruct/Medications Diet: Regular Activity: No Restrictions, As Tolerated Follow Up/Referral: With PCP in 1-2 weeks Medications: Cefdinir as prescribed Discharge Statement: "Patient was advised to return to the ER or call 911 if any headaches, dizziness, shortness of breath, chest pain, abdominal pain, bleeding, fevers, or worsening of medical condition. Patient was counseled about treatment plan, medications, possible side effects, patientverbalized understanding. All questions were answered to the best of my ability. This discharge took greater then 30 minutes in planning, reviewing documentation, counseling the patient, and discussing with other team members." ASSESSMENT ASSESSMENT Assessment 69-year-old female with no significant past medical history initially admitted to the hospital with nausea vomiting, flu-like symptoms, cough and phlegm found to have 1. Sepsis unspecified follow up blood cultures negative 2. Nausea vomiting unspecified , resolved 3. Acute kidney injury suspect secondary to vasomotor nephropathy, improving 4. Metabolic acidosis secondary to dehydration , improving 5. Hyponatremia likely hypovolemic, improving 6. Headache Date of Service: Aug 03, 2024 Billing Provider: TONY NAVARRETE MD Common Visit Codes: NOT BILLABLE TONY NAVARRETE MD Aug 03, 2024 11:54
[2024-08-03 13:30] VITALS: BP 129/81; PULSE 75; RESP 18; TEMP 97.6; O2SAT 94
[2024-08-03] MEDS ORDERED: DEXT1SYP9 PO (13:56)
[2024-08-03 14:34] VITALS: BP 129/81; PULSE 75; RESP 18; TEMP 97.6; O2SAT 94
[2024-08-03] MEDS ORDERED: MELATONIN 5 MG TAB PO SCH (22:00)
== END 2024-08-03 16:30 | disposition home health service (06) | DRG 871 ==
LOC: ER 08:43 → OVERFLOW 16:44 → TELE-WESTW 16:47 → WEST WING 08-03 16:18
PROVIDERS: ADMIT Internal Medicine; ATTEND Internal Medicine
DX: A41.9 Sepsis, unspecified organism (principal); N17.0 Acute kidney failure with tubular necrosis; E87.20 Acidosis, unspecified; E87.1 Hypo-osmolality and hyponatremia; K92.0 Hematemesis; J11.1 Influenza due to unidentified influenza virus with other respiratory manifestations; J20.9 Acute bronchitis, unspecified; Z20.822 Contact with and (suspected) exposure to COVID-19; E86.0 Dehydration; E86.1 Hypovolemia; Z79.899 Other long term (current) drug therapy
CPT/HCPCS: 36415; 70450; 71045; 76775; 80048; 80053; 80061; 81001; 82306; 83036; 83605; 83735; 83970; 84100; 84443; 85025; 87040; 87426; 87804; 96361; 96365; 97163; 99291; G0378

== ENCOUNTER 2024-12-20 13:31 | Emergency (ER) | payer OTHER, MEDICAID ==
[~2024-12-20] VITALS: Ht 157.5 cm; Wt 69.1 kg
[~2024-12-20 13:31] MED LIST: CEFD300C2 PO; DEXT1SYP9 PO
[2024-12-20] MEDS: TETANUS-DIPTH-ACEL PERTUSSIS 0.5ML SYR Tdap IM ONE (14:39)
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
[2024-12-20] MEDS ORDERED: CIPR-173 PO (15:10)
[2024-12-20 15:15] VITALS: BP 130/84; PULSE 78; RESP 18; TEMP 98.4; O2SAT 97
[2024-12-20] MEDS ORDERED: NEOMYCIN-BACITRACIN-POLYM 15GM TOP OINT TOP SCH ×2 (22:00)
== END 2024-12-20 15:27 | disposition home or self-care (01) ==
LOC: ER 13:31
DX: S61.411A Laceration without foreign body of right hand, initial encounter (principal); W23.0XXA Caught, crushed, jammed, or pinched between moving objects, initial encounter; Y93.89 Activity, other specified; Y92.89 Other specified places as the place of occurrence of the external cause; Y99.8 Other external cause status
CPT/HCPCS: 12001; 90471; 90715